=== PATIENT | male | born 1990 | race Caucasian/White ===

== ENCOUNTER 2016-08-10 11:14 | Outpatient (CLI) | payer OTHER, BC ==
--- NOTE | 2016-08-10 13:09 | DIAGNOSTIC IMAGING REPORT ---
PROCEDURE: US COMPLETE PELVIC INDICATION: LLQ PAIN TECHNIQUE: High resolution transcutaneous scans of the lower abdomen and upper pelvis in both upright and supine positions, and without and with Valsalva. COMPARISON: Comparison is made to CT abdomen (06/15/2012), MRI pelvis and left hip (04/04/2012), and ultrasound from 07/31/12. FINDINGS: Despite careful search, there is no evidence of abdominal wall hernia. No evidence of abdominal wall mass. IMPRESSION: 1. Negative ultrasound of the abdominal wall. No evidence of abdominal wall mass or hernia.
== END 2016-08-10 23:00 ==
LOC: US SRH 11:14
DX: R10.32 Left lower quadrant pain (principal)